=== PATIENT | male | born 1985 | race African-American/Black ===

== ENCOUNTER 2023-10-01 20:01 | Emergency (ER) | payer OTHER ==
[~2023-10-01] VITALS: Ht 165.1 cm; Wt 72.7 kg
[2023-10-01 20:06] VITALS: TEMP 98.2
[2023-10-01] MEDS ORDERED: Ibuprofen 600 MG TAB PO ONE (21:00)
[2023-10-01 21:38] VITALS: BP 131/99; PULSE 53
== END 2023-10-01 21:38 | disposition home or self-care (01) ==
LOC: COL.ER 20:01
DX: S93.402A Sprain of unspecified ligament of left ankle, initial encounter (principal); G89.29 Other chronic pain; M25.571 Pain in right ankle and joints of right foot; X50.1XXA Overexertion from prolonged static or awkward postures, initial encounter; Y93.66 Activity, soccer; Y92.322 Soccer field as the place of occurrence of the external cause